=== PATIENT | female | born 1935 | race African-American/Black ===

== ENCOUNTER 2018-05-05 14:05 | Emergency (ER) | payer BC, MEDICARE ==
[2018-05-05 14:13] VITALS: TEMP 97.5; BMI 27.3
[2018-05-05 15:21] LABS: BASO % 1.3 % (0-2.0); HEMATOCRIT 35.4 % (32.4-45.2); HEMOGLOBIN 12.5 GM/dL (10.7-15.3); LYMPH % 47.6 % (8-40); MCH 33.4 pg (25.7-33.7); MCHC 35.4 g/dl (32.0-36.0); MEAN CELL VOLUME 94.4 fl (80-96); MEAN PLT VOLUME 8.2 fl (7.5-11.1); MONO % 13.3 % (3.8-10.2); NEUT % 32.8 % (42.8-82.8); PLATELET COUNT 238 K/MM3 (134-434); RBC 3.76 M/mm3 (3.60-5.2); RDW 14.1 % (11.6-15.6)
--- NOTE | 2018-05-05 15:31 | PDOC ---
History of Present Illness - General Chief Complaint: Chest Pain Stated Complaint: CHEST PAIN Time Seen by Provider: 05/05/18 14:12 History Source: Patient Exam Limitations: No Limitations - History of Present Illness Initial Comments: 05/05/18 14:58 82 yo female pmh of chronic low back pain, HTN, DVT? (on plavix and asa) presents to the ED from Urgent care for 3 weeks of intermittent non exertional CP. Pt states she has been woken up out of sleep some nights with right sided CP with associated nausea (no vomiting) and right arm numbness/tingling. Pain is described as sharp, radiating down right arm, non exertional, worse at night , no relieving or exacerbating factors. Also pain is mainly found at night and relieved during the day. Pt denies recent/prolonged immobilization/travel, no smoking hx, no hormone use, pain is non plueritic but pt does admit to right calf pain today. Denies F/C, SOB, new back pain, abdominal pain, changes in bowel or bladder habits. Pt tried tylenol at home for pain without relief. Of note, PCP Dr. Nova prescribed pain medication that pt does not know the name too. Pt has not taken this medication since she ran out of refills for it. Past History - Past Medical History Allergies/Adverse Reactions: Allergies Allergy/AdvReac Type Severity Reaction Status Date / Time Sulfa (Sulfonamide Allergy Verified 05/05/18 14:13 Antibiotics) Home Medications: Ambulatory Orders Budesonide/Formeterol Fumarate [SYMBICORT 160/4.5mcg -] 2 inh PO DAILY 03/31/14 Montelukast Na [Singulair -] 10 mg PO HS 03/31/14 Topiramate [Topamax] 50 mg PO DAILY 03/31/14 Clopidogrel Bisulfate [Plavix -] 75 mg PO DAILY 01/03/16 Losartan/Hydrochlorothiazide [Losartan-Hctz 50-12.5 mg Tab] 1 each PO DAILY Bethanechol Chloride 5 mg PO BID 05/05/18 Potassium Chloride [Klor-Con] 20 meq PO TID 05/05/18 Asthma: Yes COPD: No GI Disorders: Yes (constipation) HTN: Yes Hypercholesterolemia: Yes - Surgical History Cholecystectomy: Yes - Suicide/Smoking/Psychosocial Hx Smoking History: Never smoked Have you smoked in the past 12 months: No Hx Alcohol Use: No Drug/Substance Use Hx: No Substance Use Type: None Hx Substance Use Treatment: No Review of Systems - Review of Systems Constitutional: No: Chills, Fever Respiratory: No: Cough, Shortness of Breath, SOB with Exertion Cardiac (ROS): Yes: Chest Pain (right sided and sharp) ABD/GI: Yes: Nausea, Other (denies abdominal pain). No: Constipated, Diarrhea, Vomiting : No: Burning, Dysuria, Discharge, Frequency, Flank Pain Musculoskeletal: No: Back Pain (admits lower back pain) *Physical Exam - Vital Signs Last Vital Signs Temp Pulse Resp BP Pulse Ox 97.5 F L 53 L 18 136/67 99 05/05/18 14:07 05/05/18 14:07 05/05/18 14:07 05/05/18 14:07 05/05/18 14:07 Moderate Sedation - Procedure Monitoring Vital Signs: Procedure Monitoring Vital Signs Temperature 97.5 F L 05/05/18 14:07 Pulse Rate 53 L 05/05/18 14:07 Respiratory Rate 18 05/05/18 14:07 Blood Pressure 136/67 05/05/18 14:07 O2 Sat by Pulse Oximetry (%) 99 05/05/18 14:07 ED Treatment Course - RADIOLOGY Radiology Studies Ordered: Category Date Time Status CHEST X-RAY PORTABLE* [RAD] Stat Radiology 05/05/18 14:54 Ordered Medical Decision Making - Medical Decision Making 05/05/18 15:49 82 yo female presents to ED with 3 weeks of intermittent non exertional right sided CP with associate nausea (no vomiting) and right arm numbness and tingling. Pain described as sharp, reproducible with palpation. OTC tylenol has not helped. Pt also has right calf tenderness Vitals wnl DDX INLT: ACS, PE, GERD, gall stones 05/05/18 16:01 bedside US chest shows normal heart contractility, no RV dilation, normal lung sliding without effusions RUQ shows no gall stones Duplex of right leg due to calf tenderness R/O DVT not tachy, tychp, hypotensive or hypoxic. Pain described as sharp, reproducible with palpation. Pain is non exertional, only at night more suggestive of GI upset rather than cardio/pul issues. Low risk Wells (1 point) Pt has episode of sharp right lower CP in the ED, Maalox given. Will reassess Pt will follow up with PCP tomorrow *DC/Admit/Observation/Transfer Diagnosis at time of Disposition: Chest pain - Discharge Dispostion Disposition: HOME Condition at time of disposition: Stable Decision to Admit order: No - Referrals Referrals: Chencho Gallegos MD [Primary Care Provider] - - Patient Instructions Printed Discharge Instructions: DI for Atypical Chest Pain, DI for Chest Pain Additional Instructions: Please make it to your Primary Doctor appointment tomorrow. Continue taking home dosed medications. Take over the counter maalox and zantac along with Tylenol for pain as needed. Return to the ER for new or concerning symptoms including but not limited to: persistent chest pain, shortness of breath, vomiting, high fevers. Thank you - Post Discharge Activity
[2018-05-05 15:43] LABS: PROTHROMBIN TIME (PATIENT) 11.8 SEC (9.7-13.0)
[2018-05-05 15:45] LABS: ACTIVATED PTT 32.8 SECONDS (25.2-36.5)
[2018-05-05 15:47] LABS: CO2 30 mmol/L (21-32); CREATININE 1.2 mg/dL (0.55-1.3)
--- NOTE | 2018-05-05 15:51 | PDOC ---
Attending Attestation - HPI HPI: 05/05/18 16:04 The patient is a 82 year old female with a past medical history of HTN and possible DVT here today for evaluation of chest pain. The patient reports that her chest pain began 3 months ago and describes it as intermittent, right sided and radiates down her right arm, non exertional, and worse at night. She notes associated nausea and right calf tenderness. Patient also reports that she was taking pain medications until about 1 month ago when she ran out. Patient denies headache, lightheadedness. Denies fever, chills. Denies chest pain. Denies nausea, vomiting, diarrhea, abdominal pain. Allergies: sulfa PCP: Chencho Gallegos - Physicial Exam PE: 05/05/18 16:04 Vitals: Triage vital signs reviewed General Appearance: No acute distress, well nourished, well developed Head: Atraumatic Chest Wall: Nontender Cardiac: Regular rate and rhythm, no murmurs, no rubs, no gallops Lungs: Clear to auscultation bilateral, good air movement bilaterally Abdomen: Soft, nondistended, normal bowel sounds, nontender to palpation Extremities: Full range of motion to all extremities, no cyanosis, clubbing, or edema Skin: Warm and dry, no rashes or lesions, no rash, no petechiae Neuro: AOX3; Cranial Nerves 2-12 grossly intact, Strength intact to all extremities, Sensation intact to all extremities Psych: Normal mood, normal affect - Medical Decision Making 05/05/18 15:57 Documentation prepared by ENE Meredith, acting as medical diagnostic radiographer for Bob Morales MD. The patient is a 82 year old female with a past medical history of HTN and possible DVT here today for evaluation of chest pain. <Quan Atkinson - Last Filed: 05/05/18 16:02> - Resident Resident Name: Brandon Eason - ED Attending Attestation I have performed the following: I have examined & evaluated the patient, The case was reviewed & discussed with the resident, I agree w/resident's findings & plan, Exceptions are as noted - Medical Decision Making Nonischemic EKG troponin negative Bedside ultrasound demonstrates no pleural effusion Given nocturnal discomfort right sided nonexertional low suspicion for ACS at this time We'll perform duplex of right lower extremity given some mild calf pain if negative patient can be discharged low risk by souravs criteria for PE / DVT Dr. Rhodes to F/U US and dispo <Bob Morales - Last Filed: 05/05/18 16:14> Heart Score/ECG Review - ECG Impressions Comment:: 05/05/18 16:13 EKG performed at 1400 demonstrates normal sinus rhythm no ST elevations or T- wave inversions. Interpreted by me. <Bob Morales - Last Filed: 05/05/18 16:14>
[2018-05-05] MEDS ORDERED: MAG HYDROX/AL HYDROX/SIMETH 30 ML UNIT-DOSE CUP PO ONE (15:58)
[2018-05-05 16:04] LABS: ALBUMIN 3.8 g/dl (3.4-5.0); ALK PHOS 101 U/L (45-117); ANION GAP 6 MMOL/L (8-16); BILIRUBIN,TOTAL 0.3 mg/dL (0.2-1); BLOOD UREA NITROGEN 14 mg/dL (7-18); CALCIUM 8.9 mg/dL (8.5-10.1); CHLORIDE 106 mmol/L (98-107); GLUCOSE,RANDOM 114 mg/dL (74-106); N-TERMINAL BNP 106.7 pg/ml (5-450); POTASSIUM 3.1 mmol/L (3.5-5.1); SGOT/AST 13 U/L (15-37); SGPT/ALT 11 U/L (13-61); SODIUM 142 mmol/L (136-145); TOT PROT 7.2 g/dl (6.4-8.2)
[2018-05-05] MEDS ORDERED: MAG HYDROX/AL HYDROX/SIMETH 30 ML UNIT-DOSE CUP ONE (16:14)
[2018-05-05] MEDS ORDERED: ACETAMINOPHEN 325 MG TABLET (FP) PO ONE (16:59)
[2018-05-05] MEDS ORDERED: ACETAMINOPHEN 325 MG TABLET (FP) ONE (17:08)
[2018-05-05 17:23] VITALS: BP 133/78; PULSE 54
--- NOTE | 2018-05-06 22:51 | EKG ---
Test Reason : Blood Pressure : / mmHG Vent. Rate : 059 BPM Atrial Rate : 059 BPM P-R Int : 166 ms QRS Dur : 080 ms QT Int : 448 ms P-R-T Axes : 042 013 040 degrees QTc Int : 443 ms SINUS BRADYCARDIA LOW VOLTAGE QRS BORDERLINE ECG WHEN COMPARED WITH ECG OF 03-JAN-2016 19:27, PREMATURE ATRIAL COMPLEXES ARE NO LONGER PRESENT Confirmed by OWEN REYES MD ([id number]) on 05/06/2018 10:50:27 PM Referred By: Confirmed By:OWEN REYES MD
== END 2018-05-05 17:35 | disposition home or self-care (01) ==
LOC: SUPCPDRO 14:05 → JER 14:05
DX: R07.9 Chest pain, unspecified (principal); M79.661 Pain in right lower leg; I10 Essential (primary) hypertension; J45.909 Unspecified asthma, uncomplicated; Z86.718 Personal history of other venous thrombosis and embolism; Z79.01 Long term (current) use of anticoagulants; Z79.82 Long term (current) use of aspirin
CPT/HCPCS: 36415; 71045-TC-FY; 80053; 82550; 83880; 84484; 85025; 85610; 85730; 93005; 93010; 93971-TC; 99284-25